=== PATIENT | male | born 1975 | race Caucasian/White ===

== ENCOUNTER 2017-10-09 16:25 | Emergency (ER) | payer SELFPAY ==
[2017-10-09] MEDS ORDERED: LIDOCAINE 2% 20 ML VIAL. IJ (17:15)
[2017-10-09] MEDS: cefTRIAXone IM 1 GM VIAL IM (17:32)
[2017-10-09] MEDS: IV NORMAL SALINE 1000ML BAG 1,000 ML IV (18:06)
[2017-10-10 06:55] LABS: NEGATIVE OBC STREP NEG; POSITIVE OBC STREP POS
== END 2017-10-09 19:16 | disposition home or self-care (01) ==
LOC: ER 19:16
DX: J02.0 Streptococcal pharyngitis (principal); J45.909 Unspecified asthma, uncomplicated; F17.210 Nicotine dependence, cigarettes, uncomplicated
CPT/HCPCS: 87880; 96372; 99284; J0696; J7030